=== PATIENT | female | born 1985 | race Caucasian/White ===

== ENCOUNTER 2021-04-13 18:05 | Emergency (ER) | payer OTHER ==
[2021-04-13 18:18] VITALS: BP 119/75; PULSE 68; TEMP 97.8; BMI 36.1
[2021-04-13] MEDS ORDERED: diphenhydrAMINE HCL 25 MG CAPSULE (FP) PO ONE ×2 (18:29→18:30)
== END 2021-04-13 18:45 | disposition home or self-care (01) ==
LOC: FER 18:05
DX: R07.0 Pain in throat (principal)
CPT/HCPCS: 99283-25

== ENCOUNTER 2022-05-29 20:00 | Emergency (ER) | payer BC, OTHER ==
[2022-05-29 20:23] LABS: HEMATOCRIT 38.5 % (32.4-45.2); HEMOGLOBIN 13.4 G/dL (10.7-15.3); MCH 29.7 pg (25.7-33.7); MCHC 34.7 g/dl (32.0-36.0); MEAN CELL VOLUME 85.8 fl (80-96); MEAN PLT VOLUME 9.6 fl (7.5-11.1); PLATELET COUNT 302.6 10^3/uL (134-434); RBC 4.49 10^6/uL (3.60-5.2); RDW 14.2 % (11.6-15.6); WHITE BLOOD COUNT 9.4 10^3/uL (4.0-10.8)
[2022-05-29 20:24] VITALS: BP 129/79; PULSE 79; BMI 37.1
[2022-05-29 21:22] LABS: PLATELET ESTIMATE ADEQUATE
== END 2022-05-29 21:16 | disposition home or self-care (01) ==
LOC: FER 20:00
DX: N93.8 Other specified abnormal uterine and vaginal bleeding (principal)
CPT/HCPCS: 36415; 84703; 85025; 99283-25